=== PATIENT | male | born 2000 | race Caucasian/White ===

== ENCOUNTER 2021-09-30 12:31 | Emergency (ER) | payer SELFPAY ==
[2021-09-30] MEDS ORDERED: Famotidine 20 MG/2 ML SDV IVPUSH ONE (13:43)
[2021-09-30] MEDS ORDERED: Sodium Chloride 0.9% 1,000 ML IV ONE (13:43)
[2021-09-30] MEDS ORDERED: Ondansetron 4 MG/2 ML SDV IVPUSH ONE (13:43)
[2021-09-30 14:43] LABS: BLOOD UREA NITROGEN,BUN 15 mg/dL (7.0-18.0); CARBON DIOXIDE,CO2 26.5 mmol/L (21.0-32.0); CHLORIDE,CL 104 mmol/L (98-107); GLUCOSE RANDOM 86 mg/dL (74-106); POTASSIUM,K 3.8 mmol/L (3.5-5.1); SODIUM,NA 137 mmol/L (136-148)
== END 2021-09-30 15:09 | disposition home or self-care (01) ==
LOC: MW.ED 12:31
DX: K29.00 Acute gastritis without bleeding (principal); E66.9 Obesity, unspecified; Z68.34 Body mass index [BMI] 34.0-34.9, adult; Z79.899 Other long term (current) drug therapy; Z72.0 Tobacco use
CPT/HCPCS: 36415; 80053; 81003; 83690; 85025; 96374; 96375; 99284; J2405; J3490; J7030

== ENCOUNTER 2022-01-02 14:46 | Emergency (ER) | payer SELFPAY | END 2022-01-02 19:15 | disposition home or self-care (01) | LOC: MW.ED 14:46 | DX: J06.9 Acute upper respiratory infection, unspecified (principal); R05.9 Cough, unspecified; E66.9 Obesity, unspecified; Z68.38 Body mass index [BMI] 38.0-38.9, adult; Z79.899 Other long term (current) drug therapy; Z20.822 Contact with and (suspected) exposure to COVID-19 | CPT/HCPCS: 71045; 71045-26; 99283; U0002 ==